=== PATIENT | female | born 1960 | race Caucasian/White ===

== ENCOUNTER 2020-10-04 14:28 | Outpatient (REF) | payer MEDICAID, SELFPAY ==
--- NOTE | 2020-10-04 | MR_ITS ---
EXAMINATION: MR BRAIN WITHOUT AND WITH CONTRAST CLINICAL INFORMATION: Colloid cyst of the third ventricle. COMPARISON: None available. TECHNIQUE: MRI of the brain was obtained using routine sequences without and following the administration of 8 mL of Gadavist intravenous contrast. FINDINGS: Extensive cystic encephalomalacia of the left MCA territory. Chronic hemosiderin staining in the region of the left dee radiata. Wallerian degeneration of the left cerebral peduncle. There is also encephalomalacia of the parasagittal left occipital lobe. No focal restricted diffusion is demonstrated to suggest acute or subacute cerebral ischemia. No evidence of acute hemorrhagic products on heme-sensitive imaging. Mild periventricular and deep white matter T2 FLAIR hyperintensities within the right cerebral hemisphere consistent with mild underlying microangiopathy. Ex vacuo dilatation of the left lateral ventricle. No evidence of obstructive hydrocephalus. No abnormal mass effect. No midline shift. No abnormal enhancement in the region of the foramen of Monro. No evidence of significant space-occupying lesion in this location. The sella turcica is partially empty. Normal positioning of the cerebellar tonsils. The flow void of the left internal carotid artery is absent. Normal arterial and venous vascular flow voids the remaining major intracranial vessels are present. No abnormal contrast enhancement. Normal, homogeneous marrow signal. Mild mucosal thickening of the paranasal sinuses. Mild rightward nasal septal deviation. No signal abnormalities within the mastoids. MR/MR head/brain wo/w con IMPRESSION: 1. Extensive encephalomalacia throughout the left MCA territory. There is also encephalomalacia involving a portion of the left PASTRY ARTIST territory. 2. No evidence of acute intracranial abnormalities. No abnormal intracranial enhancement. 3. No evidence of significant space-occupying lesion in the region of the foramen of Monro. No evidence of obstructive hydrocephalus.
== END 2020-10-04 14:29 | disposition home or self-care (01) ==
LOC: HO.MRI 14:28
PROVIDERS: PCP Family Medicine Geriatric Medicine; Visit Provider Psychiatry & Neurology Neurology
DX: Q04.6 Congenital cerebral cysts (principal)
CPT/HCPCS: 70553; A9585

== ENCOUNTER 2025-07-12 11:37 | Outpatient (AMB) | payer MEDICAID, SELFPAY ==
--- NOTE | 2025-07-12 11:38 | A.OFFVIS_ITS ---
Vital Signs 07/12/25 11:47 Height 5 ft 2 in Weight 170 lb BMI 31.1 BP 124/86 Blood Pressure Location Lt brachial Position Sitting Respiration 16 Pulse 61 Pulse Source Pulse Oximeter Pulse Oximetry (%) 96 Oxygen Delivery Method Room Air Intake Visit Reasons: Follow Up Practice Managers Required: No Funeral Service Apprentice: Funeral Service Apprentice Present Accompanied by: Bulk Sausage Casing Tier Off Allergies latex Allergy (Unknown, Verified 07/10/25 09:49) Unknown sumatriptan (From Imitrex) Allergy (Unknown, Verified 07/10/25 09:49) Unknown HPI Comments Details: Fany is a 64-year-old female patient with a past medical history of CVA and headache who is here today for a follow-up visit. She was last seen in March of [address] Varner. Notes from this date reflect that she was taking amitriptyline and topiramate for headaches though she was having difficulty sleeping her amitriptyline was reduced and topiramate was discontinued. She had a left ICA occlusion on 09/29/2016 with left MCA stroke. She was out of the tPA window. Her sleep has also been difficult in the past. There was also some mention of vestibular physical therapy for BPPV. She was advised to continue current medications for her headache which included at the time, amitriptyline 100 mg at bedtime and gabapentin 100 mg twice daily. She tells me in follow up today that she does continue to have dizziness from time to time however this is typically only in the morning when getting out bed or when going to laying down into bed. Aside from this, she is wheelchair-bound and does not move her position frequently throughout the day. She really only notices any dizziness/vertigo symptoms when she is moving her position. She does still have frequent headaches from time to time and she does allude to having 1 very severe headache somewhat recently but aside from this they are relatively manageable and fluctuating throughout the week. She is very vague on ability to describe how frequently they are occurring are the certain qualities in the headache themselves. She also tells me that since her amitriptyline has been at 150 mg nightly, she is actually having a more difficult time sleeping and the halfway staff accompanying her today also noted that when she has been on 50 mg in the past it had seemingly worked better for her. She does have a history of JADE and snores. She has not been able to tolerate CPAP in the past. Prior workup: MRI brain showing 4 mm colloid cyst of the 3rd ventricle without hydrocephalus. [facility] Medical History (Updated 07/12/25 @ 12:16 by Whitney Bazzi CNP) HLD (hyperlipidemia) Fibromyalgia Depression Stroke Review of Systems Const All systems reviewed & are unremarkable except as noted in HPI and below Neuro Reports Abnormal speech present Physical Exam Vital Signs: Last Vital Signs Pulse 61 07/12/25 11:47 Resp 16 07/12/25 11:47 BP 124/86 07/12/25 11:47 Pulse Ox 96 07/12/25 11:47 Oxygen Delivery Method Room Air 07/12/25 11:47 BMI result Body Mass Index 31.1 Const General: cooperative, healthy appearing, comfortable and no acute distress Nutritional Appearance: well nourished Orientation/consciousness: patient oriented x3 Limitations: no limitations Neuro General: patient oriented x3 Cranial nerves: Yes Other cranial nerve findings present (Right-sided facial droop) Cognition (Neuro): normal cognition Speech: Abnormal speech present garbled and slurred Gait exam (Neuro): Other gait observations present (Wheelchair bound) Motor exam (neuro): no tremor noted and Abnormal motor strength present (Chronic right-sided weakness) Sensory Exam: double simultaneous stimulation for sensation normal Romberg Test: Negative Pupils: Normal pupillary reactivity/response: bilateral Psych Appearance: grossly normal Mental Status: mental status grossly normal Speech and movement: Normal speech and movement present and Clear speech present Affect: normal affect Attitude: cooperative Thought process: Normal thought process present Thought content: Normal thought content present Insight: Good insight present (Psych) Judgement: Good judgement present (Psych) Assessment & Plan Assessment & Plan (1) Stroke: Code(s): I63.9 - Cerebral infarction, unspecified Category: Medical (2) Chronic headache: Code(s): R51.9 - Headache, unspecified; G89.29 - Other chronic pain Category: Medical (3) BPPV (benign paroxysmal positional vertigo): Code(s): H81.10 - Benign paroxysmal vertigo, unspecified ear Category: Medical (4) Insomnia: Code(s): G47.00 - Insomnia, unspecified Category: Medical (5) JADE (obstructive sleep apnea): Code(s): G47.33 - Obstructive sleep apnea (adult) (pediatric) Category: Medical Plan Fany is a 64-year-old female patient with a past medical history of CVA and headache who is here today for a follow-up visit. We are today and dressing primarily her headaches and insomnia which have seemingly gotten worse with higher doses of amitriptyline currently dose at 150 mg nightly. Seemingly, her insomnia was better controlled at the 50 mg dose and her headaches nor perhaps also slightly better on the lower dose as well. I am concerned for over- sedation which can also cause worsening of JADE which may also be contributing to her increase in headaches or even perhaps more frequent awakenings. I would like to titrate her slowly back down to a goal dose of 50 mg nightly starting with 100 mg for 2 weeks and then decreasing completely to 50 mg after that. We will see how she does at the 50 mg dose and we can consider performing a repeat sleep study when she comes back for follow up. -Reduce amitriptyline goal to 50mg nihgtly as prior -Consider sleep study Medications: New amitriptyline Take 100 mg (2 tablets) by mouth at bedtime for 2 weeks and then decrease to 50 mg (1 tablet) by mouth at bedtime 90 tabs 0RF Coding Level of Care Code Est Pt Level 4 (38985) Diagnoses Stroke I63.9 Chronic headache R51.9; G89.29 BPPV (benign paroxysmal positional vertigo) H81.10 Insomnia G47.00 JADE (obstructive sleep apnea) G47.33
[2025-07-12 11:47] VITALS: BP 124/86; PULSE 61; RESP 16; O2SAT 96; BMI 31.1
--- OUTSIDE RECORDS SUMMARY | 2025-07-12 14:36 | XMS_ITS | Encounter Summary ---
Author Organization [facility], Address [address] [place] [address] Phone Care Team Providers Care Director Institution Name Role Phone Whitney Sanches MD Primary Care Provider [phone] Encounter Details Date Type Department Care Team (Late Contact Info) Description 08/02/2024 Documentation Only [facility] [address] J[address]IEN [address] [place] [phone] Marilyn Avery [address] [place] [address] Social History Tobacco Use Types Packs/Day Years Used Date Smoking Tobacco: Never Assessed Comments Unknown Sex and Gender Information Value Date Recorded Sex Assigned at Not on file Legal Sex Female 2:59 PM EDT Gender Identity Not on file Sexual Orientation Not on file documented as of this encounter Plan of Treatment Upcoming Encounters Date Type Department Care Team (Late Contact Info) Description 08/08/2025 2:00 PM EST Office Visit [facility] [address] [place] [address] Adolph Shah MD [address] [place] [address] [place] [address] documented as of this encounter Visit Diagnoses Not on filedocumented in this encounter Care Teams Director Institution Relationship Specialty Start Date End Date Whitney Sanches MD [address] [place] [address] PCP - General Internal Medicine 12/17/23 documented as of this encounter
--- OUTSIDE RECORDS SUMMARY | 2025-07-12 14:36 | XMS_ITS | Encounter Summary ---
Author Organization [facility], Address [address] [place] [address] Phone Care Team Providers Care Tractor Technician Name Role Phone Whitney Sanches MD Primary Care Provider [phone] Encounter Details Date Type Department Care Team (Late st Contact Info) Description 10/18/2024 Documentation Only [facility] [address] [place] [address] [place], [place] [address] [place] [address] Social History Tobacco Use Types Packs/Day Years Used Date Smoking Tobacco: Never Assessed Comments Unknown Sex and Gender Information Value Date Recorded Sex Assigned at Not on file Legal Sex Female 2:59 PM EDT Gender Identity Not on file Sexual Orientation Not on file documented as of this encounter Plan of Treatment Upcoming Encounters Date Type Department Care Team (Late st Contact Info) Description 08/08/2025 2:00 PM EST Office Visit [facility] [address] [place] [address] Adolph Shah MD [address] [place] [address] [place] [address] documented as of this encounter Visit Diagnoses Not on filedocumented in this encounter Care Teams Tractor Technician Relationship Specialty Start Date End Date Whitney Sanches MD [address] [place], [place] [phone] PCP - General Internal Medicine 12/17/23 documented as of this encounter
--- OUTSIDE RECORDS SUMMARY | 2025-07-12 14:36 | XMS_ITS | Clinical Summary ---
Author Organization [facility] Address [address] [place] [id number] Phone Care Team Providers Care Power Builder Developer Name Role Phone Pcp, Unknown Primary Care Provider Unavailabl e Social History Tobacco Use Types Packs/Day Years Used Date Smoking Tobacco: Never Assessed Education Answer Date Recorded Are you interested in more education? Not on preeti e 01/25/2023 Are you concerned about learning? Not on file 01/25/2023 No 01/25/2023 No 01/25/2023 Digital Access Answer Date Recorded No 02/07/2023 No 02/07/2023 No 02/07/2023 Reliable internet access at home? Not on file 02/07/2023 Device with a working camera? Not on file Comments Unknown Sex and Gender Information Value Date Recorded Sex Assigned at Not on file Legal Sex Female 6:45 PM EST Gender Identity Not on file Sexual Orientation Not on file Plan of Treatment Health Maintenance Due Date Last Done Comments Adult Td,Tdap Booster 1960 LIPID PANEL 1960 DEPRESSION SCREENING 1972 SMOKING Hx and SMOKELESS TOBACCO SCREENING 1973 HEPATITIS C SCREENING 1978 HIV ONE-TIME SCREENING (18-6 5 YEARS) 1978 PAP SMEAR 1981 MAMMOGRAM 2000 COLOGUARD 2005 COLONOSCOPY 2005 COLORECTAL CANCER SCREENING 2005 FIT TEST 2005 FOBT 2005 SIGMOIDOSCOPY 2005 VIRTUAL COLONOSCOPY 2005 PNEUMOCOCCAL VACCINES (50+ years) (1 of 1 - PCV) 2010 ZOSTER VACCINES (1 of 2) 2010 INFLUENZA VACCINE (#1) 2025 COVID-19 VACCINE (3 - 2024-2 6 season) 2025 10/08/2020, 09/17/2020 RSV VACCINE (1 - 1-dose 75+ series) 2035 HEPATITIS A VACCINES Aged Out No long er eligible based on patient's age to complete this topic HIB VACCINES Aged Out No longer eligi ble based on patient's age to complete this topic MENINGOCOCCAL VACCINES (ACWY) Aged Out No longer eligible based on patient's age to complete this topic MENINGOCOCCAL VACCINES (B) Aged Out N o longer eligible based on patient's age to complete this topic Medical Devices Not on file Insurance [facility] [facility] [facility] [facility] Care Teams Power Builder Developer Relationship Specialty Start Date End Date Pcp, Unknown PCP - General 01/20/21 Additional Source Comments The information contained in this document represents components of the legal health record. It is not the complete legal health record.[facility]
--- OUTSIDE RECORDS SUMMARY | 2025-07-12 14:36 | XMS_ITS | Data Portability ---
Author Organization [place] - [facility], Allergy Address [address] [address] Care Team Providers Care Bulk Pallet Builder Name Role Phone WOJCIECH IRENE Primary Care Provider Assessment Encounter Date Assessment Date Assessment LastModified by Organization Details LastModified Time 02/21/2025 02/21/2025 64yo female presents with CAREER CENTER ADVISOR from intermediate for routine evaluation of the ears. Cerumen impactions removed bilaterally. TMs and EACs are normal to inspection. She has a longstanding superficial soft rubbery 2cm submental mass, suspicious for lipoma. Her primary care ordered an ultrasound for this last week, and she will fax results to our office if needed. Recommend patient return in 1 year for updated audiometric testing and cerumen debridement, sooner with concerns. [email or web address] Not available 02/21/2025 12:18:08 Plan of Treatment Reminders Order Date Submit Date Provider Last Modified By Organization Details Last Modified Time Details Appointments Hearing Test 2025 09:30A M Hearing Test Not available Not available Not available Establish ed 15 2025 09:45A M MARIA DE JESUS LAGUNA PA-C Not available Not available Not available Lab None recorded. Referral None recorded. Procedures None recorded. Surgeries None recorded. Imaging None recorded. Medication Orders None recorded. Patient TargetsNo targets recorded. Patient InstructionsNo instructions recorded. Reason for Referral None Reported. Problems Name Problem SNOMED Code Status Onset Date Resolution Date Notes Provider Name and Address Organization Details Recorded Time Otalgia 56697534 Active 2013 Earache/ Otalgia; CMS Risk: low risk CMS Treatment : establish ed problem (to examiner) : unstable or worsening Note: Date Diagnosed : 06/18/2014 1:01 PM (388.70) Not Available [facility] 4 03:11:45 Right temporoma ndibular joint disorder 38396896014 241860 Active 2014 Right temporoma ndibular joint disorder, unspecifi ed; Note: Changed from M26.609 to M26.601 ( 2 11:29 AM) , Date Diagnosed : 5 3:23 PM (M26.60) Not Available [facility] 4 03:11:43 Otalgia of right ear 3736511682 Active 2014 Otalgia, right ear; Note: Date Diagnosed : 5 3:23 PM (H92.01) Not Available [facility] 4 03:11:44 Acute pharyngit is 466645150 Active 2022 Sore throat (acute) NOS; Note: Date Diagnosed : 06/01/2023 3:46 PM (J02.9) Not Available [facility] 4 03:11:46 Mass of neck 587110399 Active 2022 Localized swelling, mass and lump, neck; Note: Date Diagnosed : 06/01/2023 3:46 PM (R22.1) Not Available [facility] 4 03:11:45 Neck swelling 009623454 Active 2022 Localized swelling, mass and lump, neck; Note: Date Diagnosed : 06/01/2023 3:46 PM (R22.1) Not Available [facility] 4 03:11:45 Temporoma ndibular joint disorder 09634036 Active 2022 Other specified disorders of temporoma ndibular joint; Note: Date Diagnosed : 06/01/2023 3:46 PM (M26.69) Not Available [facility] 4 03:11:45 Dysphonia 69682957 Active 2022 Hoarsenes s; Note: Date Diagnosed : 06/01/2023 3:46 PM (R49.0) Not Available [facility] 4 03:11:44 Bilateral earache 686711893 Active 2022 Otalgia, bilateral ; Note: Date Diagnosed : 06/01/2023 3:45 PM (H92.03) Not Available [facility] 4 03:11:44 Impacted cerumen of bilateral ears 71369923849 25932 Active 2024 MARIA DE JESUS LAGUNA PA-C [address] [facility],[place] [address], [place], [address] , [facility] - [facility] [place] 5 12:13:38 Mass of skin 967013175 Active 2024 MARIA DE JESUS LAGUNA PA-C [address] [place] [address],[place] [address], [place], [address] , [facility] - [facility] [place] 5 12:17:31 Problem Notes None recorded. Procedures Surgical History Date Name Laterality Status Provider Name and Address Organization Details Recorded Time 5 Cerumen removal without microscope bilat completed MARIA DE JESUS LAGUNA PA-C [address] [facility],[place] [address], [place], [address], [facility] - [facility] 02/21/2025 12:18:34 Imaging Results None recorded. Procedure Notes None recorded. Medical Equipment None Reported. Allergies Allergen ID Allergen Name Allergen Category Reaction Reaction Severity Criticality Documentation Date Start Date Code Code System Note Provider Name and Address Organization Details Recorded Time 96964 Ultram medicatio n other Not available Not available 01/25/2024 85528 6 RxNorm React ion: other react ion, Unkno wn; Not Available [facility] 4 01:03:58 41913 lactose Not available other Not available Not available 01/25/2024 6211 RxNorm React ion: other react ion, Unkno wn; Not Available [facility] 4 01:03:58 95298 Bactrim medicatio n other Not available Not available 01/25/2024 89923 9 RxNorm React ion: other react ion, Unkno wn; Not Available [facility] 4 01:03:59 35407 latex environme nt,medica tion other Not available Not available 01/25/2024 35827 91 RxNorm React ion: unkno wn, unspe cifie d;; Not Available [facility] 4 01:04:00 48407 sumatript an succinate medicatio n other Not available Not available 01/25/2024 38851 RxNorm React ion: unkno wn, unspe cifie d;; Not Available [facility] 4 01:04:01 15229 Compazine medicatio n other Not available Not available 01/25/2024 91825 6 RxNorm React ion: other react ion, Unkno wn; Not Available [facility] 4 01:04:02 81359 Seroquel medicatio n other Not available Not available 01/25/2024 71132 RxNorm React ion: other react ion, Unkno wn; Not Available [facility] 4 01:04:04 Medications Name Sig Start Date Stop Date Status Note LastModified by Organization Details LastModified Time fluconazo le 100 mg tablet TAKE 2 tabs by mouth today, then 1 tablet By Mouth Daily x 6 more days active Not Available Not Available No t Available atorvasta tin 80 mg tablet TAKE 1 TABLET BY MOUTH DAILY IN THE pm active Not Available Not Available No t Available acetamino phen 325 mg tablet TAKE 2 tabS (650MG) By Mouth 4 times a day NEEDED FOR Moderate PAIN or fever over 101. Not within 6 HRS of schedule d PM dose. Notify PCP if no improvem ent in 72HRS active Not Available Not Available No t Available Estring 2 mg (7.5 mcg/24 hour) vaginal ring insert 1 ring Vaginall y Every 3 MONTHS] active Not Available Not Available No t Available Vitamin C 500 mg tablet active Medicati on ID: [id number] B rand Name: Vitamin C Send Method: E-Prescr ibed Sub s Allowed: subs OK Speci al Instruct ion: TAKE 1 TABLET BY MOUTH TWICE DAILY Me dication GenericN tone: Vitamin C Not Available Not Available Not Available cetirizin e 10 mg tablet TAKE 1 TABLET BY MOUTH DAILY IN THE am active Not Available Not Available No t Available amitripty line 75 mg tablet Take 1 tablet by mouth every night at bedtime with 50 mg tablet for total dose = 125 mg active Not Available Not Available No t Available senna 8.6 mg tablet TAKE 1 TABLET BY MOUTH DAILY AT BEDTIME active Not Available Not Available No t Available sucralfat e 1 gram tablet 08/20 completed Medicati on ID: 166 Dur ation Value: 30 Brand Name: sucralfa te Send Method: E-Prescr ibed Sub s Allowed: subs OK Medic ationGen ericName : sucralfa te Not Available Not Available Not Available polyvinyl alcohol 1.4 % eye drops INSTILL 1 DROP into BOTH eyes 4 TIMES DAILY active Not Available Not Available No t Available famotidin e 40 mg tablet active Medicati on ID: [id number] B rand Name: famotidi ne Send Method: E-Prescr ibed Sub s Allowed: subs OK Speci al Instruct ion: TAKE 1 TABLET BY MOUTH TWICE DAILY Me dication GenericN tone: famotidi ne Not Available Not Available Not Available clonazepa m 0.5 mg tablet Take 1 tablet by mouth every morning active Not Available Not Available No t Available Nexium 40 mg capsule,d elayed release 08/20 completed Medicati on ID: 165 Dur ation Value: 30 Brand Name: Nexium S end Method: E-Prescr ibed Sub s Allowed: subs OK Medic ationGen ericName : Nexium Not Available Not Available Not Available topiramat e 25 mg tablet 12/23 completed Medicati on ID: [id number] B rand Name: topirama te Send Method: E-Prescr ibed Sub s Allowed: subs OK Medic ationGen ericName : topirama te Not Available Not Available Not Available ciproflox acin 500 mg tablet 08/20 completed Medicati on ID: [id number] D uration Value: 3 Brand Name: ciproflo xacin HCl Send Method: E-Prescr ibed Sub s Allowed: subs OK Speci al Instruct ion: TAKE 1 TABLET TWICE A DAY [facility] nericNam e: ciproflo xacin HCl Not Available Not Available Not Available aspirin 81 mg tablet,de layed release TAKE 1 TABLET BY MOUTH DAILY IN THE AM active Not Available Not Available No t Available amitripty line 50 mg tablet Take 1 tablet by mouth at bedtime with 75 mg tablet for total dose = 125 mg active Not Available Not Available No t Available butalbita l-acetami nophen-ca ffeine 50 mg-325 mg-40 mg tablet 08/20 completed Medicati on ID: [id number] B rand Name: butalbit al-aceta minophen -caff Se nd Method: E-Prescr ibed Sub s Allowed: subs OK Speci al Instruct ion: TAKE 1 TABLET BY MOUTH every 8 hours NEEDED Negin Castro Name: valeria al-aceta minophen -caff Not Available Not Available Not Available Zofran 4 mg tablet 12/23 completed Medicati on ID: [id number] B rand Name: Zofran S end Method: E-Prescr ibed Sub s Allowed: subs OK Medic ationGen ericName : Zofran Not Available Not Available Not Available tamsulosi n 0.4 mg capsule 08/20 completed Medicati on ID: 1656 Bra nd Name: tamsulos in Send Method: E-Prescr ibed Sub s Allowed: subs OK Medic ationGen ericName : tamsulos in Not Available Not Available Not Available trazodone 100 mg tablet 12/23 completed Medicati on ID: [id number] B rand Name: trazodon e Send Method: E-Prescr ibed Sub s Allowed: subs OK Medic ationGen ericName : trazodon e Not Available Not Available Not Available Ear Wax Removal Drops 6.5 % instill 5 DROPS IN THE right EAR TWICE DAILY FOR 7 DAYS. USE FOR 7 DAYS leading UP TO appointm ent active Not Available Not Available No t Available levothyro xine 50 mcg tablet TAKE 1 TABLET BY MOUTH DAILY IN THE am active Not Available Not Available No t Available pantopraz ole 40 mg tablet,de layed release TAKE 1 TABLET BY MOUTH TWICE DAILY active Not Available Not Available No t Available nystatin 100,000 unit/gram topical cream apply thin layer topicall y 3 TIMES A DAY FOR ITCHING yeast infectio n, USE UNTIL ITCHING resolves AND THEN STOP, MAY resume IN 7 DAYS needed IF no RELIEF IN 14 DAYS, notify prescrib er] active Not Available Not Available No t Available Advair Diskus 250 mcg-50 mcg/dose powder for inhalatio n inhale 1 PUFF BY MOUTH TWICE DAILY. RINSE MOUTH AND throat OUT WITH WATER AFTER USE active Not Available Not Available No t Available docusate sodium 100 mg capsule TAKE 2 CAPSULES BY MOUTH DAILY AT BEDTIME active Not Available Not Available No t Available gabapenti n 300 mg capsule active Medicati on ID: [id number] B rand Name: gabapent in Send Method: E-Prescr ibed Sub s Allowed: subs OK Speci al Instruct ion: Take 1 capsule by mouth at bedtime Medicati onGeneri cName: gabapent in Not Available Not Available Not Available morphine ER 15 mg tablet,ex tended release 08/20 completed Medicati on ID: 1658 Dur ation Value: 15 Brand Name: morphine Send Method: E-Prescr ibed Sub s Allowed: subs OK Medic ationGen ericName : morphine Not Available Not Available Not Available gabapenti n 100 mg capsule Take 1 capsule by mouth twice a day AM & afternoo n. active Not Available Not Available No t Available polyethyl usha glycol 3350 17 gram/dose oral powder Dissolve (17gm) in 8 oz water AND take BY MOUTH 3 TIMES DAILY FOR next 2 days. Then take TWICE DAILY FOR 1 week. Then resume daily use. active Not Available Not Available No t Available estradiol 0.01% (0.1 mg/gram) vaginal cream active Medicati on ID: [id number] B rand Name: estradio l Send Method: E-Prescr ibed Sub s Allowed: subs OK Speci al Instruct ion: insert ONE GRAM VAGINALL Y 3 TIMES A WEEK AT bedtime Medicati onGeneri cName: estradio l Not Available Not Available Not Available fluticaso ne propionat e 50 mcg/actua tion nasal spray,titi pension instill 2 SPRAYS into BOTH nostrils DAILY IN THE am active Not Available Not Available No t Available amitripty line 100 mg tablet Take 1 tablet by mouth at bedtime active Not Available Not Available No t Available Ventolin HFA 90 mcg/actua tion aerosol inhaler INHALE 2 PUFFS BY MOUTH EVERY 4 HOURS NEEDED FOR WHEEZING / SHORTNES S OF BREATH active Not Available Not Available No t Available buspirone 15 mg tablet Take 1 tablet by mouth three times a day active Not Available Not Available No t Available desmopres sin 0.1 mg tablet TAKE 1 TABLET BY MOUTH DAILY IN THE am active Not Available Not Available No t Available Calcium-5 00 500 mg (as calcium carbonate 1,250 mg) tablet 08/20 completed Medicati on ID: 1655 Bra nd Name: Calcium 500 Send Method: E-Prescr ibed Sub s Allowed: subs OK Medic ationGen ericName : Calcium 500 Not Available Not Available Not Available magnesium 200 mg tablet 08/20 completed Medicati on ID: 1654 Bra nd Name: irma maynard Send Method: E-Prescr ibed Sub s Allowed: subs OK Medic ationGen ericName : irma maynard Not Available Not Available Not Available Vitamin D3 25 mcg (1,000 unit) capsule 08/20 completed Medicati on ID: 1653 Bra nd Name: Vitamin D3 Send Method: E-Prescr ibed Sub s Allowed: subs OK Medic ationGen ericName : Vitamin D3 Not Available Not Available Not Available Cymbalta 30 mg capsule,d elayed release 12/23 completed Medicati on ID: [id number] B rand Name: Cymbalta Send Method: E-Prescr ibed Sub s Allowed: subs OK Medic ationGen ericName : Cymbalta Not Available Not Available Not Available Antacid 200 mg (as calcium carbonate 500 mg) chewable tablet chew 1 tablet BY MOUTH THREE TIMES DAILY NEEDED FOR dyspepsi a active Not Available Not Available No t Available Flovent HFA 220 mcg/actua tion aerosol inhaler active Medicati on ID: [id number] B rand Name: Flovent HFA Send Method: E-Prescr ibed Sub s Allowed: subs OK Speci al Instruct ion: inhale 2 PUFFS BY MOUTH TWICE DAILY Me dication GenericN tone: Flovent HFA Not Available Not Available Not Available Rozerem 8 mg tablet 08/20 completed Medicati on ID: 1660 Dur ation Value: 30 Brand Name: Rozerem Send Method: E-Prescr ibed Sub s Allowed: subs OK Medic ationGen ericName : Rozerem Not Available Not Available Not Available Flovent 12/23 completed Medicati on ID: [id number] B rand Name: flovent Send Method: E-Prescr ibed Sub s Allowed: subs OK Medic ationGen ericName : flovent Not Available Not Available Not Available diclofena c 1 % topical gel apply 2 Gm Topicall y 2 times a day active Not Available Not Available No t Available melatonin 5 mg tablet TAKE 2 TABLETS (10MG) BY MOUTH DAILY AT BEDTIME active Not Available Not Available No t Available DOK 100 mg tablet active Medicati on ID: [id number] B rand Name: DOK Send Method: E-Prescr ibed Sub s Allowed: subs OK Speci al Instruct ion: TAKE 2 TABLETS BY MOUTH AT BEDTIME FOR CONSTIPA TION. hold FOR loose stool x2 Medic ationGen ericName : DOK Not Available Not Available Not Available Butrans 10 mcg/hour transderm al patch 08/20 completed Medicati on ID: 1664 Dur ation Value: 28 Brand Name: Butpranav Send Method: E-Prescr ibed Sub s Allowed: subs OK Medic ationGen ericName : Butrans Not Available Not Available Not Available Vitamin D3 50 mcg (2,000 unit) capsule TAKE 1 CAPSULE BY MOUTH DAILY IN THE am active Not Available Not Available No t Available Myrbetriq 50 mg tablet,ex tended release TAKE 1 TABLET BY MOUTH ONCE DAILY IN THE am active Not Available Not Available No t Available Belinda-Tuss in DM 10 mg-100 mg/5 mL oral syrup TAKE 1 TEASPOON FUL -5ml- BY MOUTH every 4 hours NEEDED FOR cough active Not Available Not Available No t Available Vitals Date Recorded Body height Body mass index (BMI) Body weight Provider Name and Address Organization Details Last Updated DateTime 02/21/2025 157.48 cm 31.1 kg/m2 26639.7 g Nancy Titus [place] - [facility] 02/21/2025 09:48:28 Social History None recorded. Functional Status None recorded. Mental Status None recorded. Family History Nothing Reported. Medical History No medical history recorded. Gynecological HistoryNo gynecological history recorded. Obstetrics History GPAL:G 0 P 0 0 0 0 Past Encounters Encounter ID Performer Location Encounter Start Date Encounter Closed Date Diagnosis/Indication Diagnosis SNOMED-CT Code Diagnosis ICD10 Code Diagnosis IMO Codes Diagnosis Note [id number] MARIA DE JESUS LAGUNA PA-C [facility] [address] [place] [address] 02/21/2025 09:24:39 02/21/2025 10:07:11 Impacted cerumen of bilateral ears 8397804752 668002 H61.23 494541 Mass of skin 851252232 R 22.9 943717 suspicious for lipoma Health Concerns Section Related Observation LastModified by Organization Detai ls LastModified Time None Recorded Concern Status LastModified by Organization Details LastModified Time None Recorded Advance Directives Directive None Recorded Payers Insurance Date Sequence Insurance Name Policy Number Policy Cramer Covered Member ID Cramer Member ID Guarantor Name 03/28/2025 1 [facility]MEDICAID HMO) [id number] Fany Vee [id number] Fany Vee 02/21/2025 1 [facility] Fany Vee [id number] Fany Vee Notes Date Note Type Note Provider Name and Address Organization Details Recorded Time 02/21/2025 text/html ROS as noted in the HPI 64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 Reports no change in hearing. Denies ear pain, drainage, tinnitus, or Qtip use. Her primary care ordered an ultrasound for her longstanding submental mass. She will fax results to our office if needed. RADHA GUZMAN MD [address] [place] [address], [address], [facility] - [facility] 02/21/2025 12:36:14 OBGyn Episode No OBEpisode recorded.
--- OUTSIDE RECORDS SUMMARY | 2025-07-12 14:36 | XMS_ITS | Encounter Summary ---
Author Organization [facility], Address [address] [place] [address] Phone Care Team Providers Care Gum Machine Filler Name Role Phone Whitney Sanches MD Primary Care Provider [phone] Encounter Details Date Type Department Care Team (Late st Contact Info) Description 01/29/2025 Documentation Only [facility] [address] [place] [address] Marilyn Avery [address] [place] [phone] Social History Tobacco Use Types Packs/Day [...] Visit [facility] [address] [place] [address] Adolph Shah MD [address] [place] [address] [place] [address] documented as of this encounter Visit Diagnoses Not on filedocumented in this encounter Care Teams Gum Machine Filler Relationship Specialty Start Date End Date Whitney Sanches MD [address] [place] [address] PCP - General Internal Medicine 12/17/23 documented as of this encounter
--- OUTSIDE RECORDS SUMMARY | 2025-07-12 14:36 | XMS_ITS | Patient Health Record ---
Author Organization [facility] Address [address] [place] [address] Care Team Providers Care Attendant Coin Operated Laundry Name Role Phone Lynn Meneses MD Primary Care Provider Unavailab Gallito Bush Unavailable [phone] [facility] Unavailable Unavailabl e Reason For Referral No Information Medications Medication SIG (Take, Route, Frequency, Duration) Notes Start Date End Date Status NexIUM AC BID *Please review a nd pick correct strength-formulation from Medispan options. If intended option is not shown, discontinue and re-order from Quick Search* Active Amitriptyline HCl *Please review and pick correct strength-formulation from Medispan options. If intended option is not shown, discontinue and re-order from Quick Search* Active Clindamycin HCl *Please review a nd pick correct strength-formulation from SaaSMAXspan options. If intended option is not shown, discontinue and re-order from Quick Search* Active Uroxatral *Please review a nd pick correct strength-formulation from Medispan options. If intended option is not shown, discontinue and re-order from Quick Search* Active Effexor XR *Please review a nd pick correct strength-formulation from Medispan options. If intended option is not shown, discontinue and re-order from Quick Search* Active Mirtazapine *Please review a nd pick correct strength-formulation from Medispan options. If intended option is not shown, discontinue and re-order from Quick Search* Active KlonoPIN *Please review a nd pick correct strength-formulation from Apisphere options. If intended option is not shown, discontinue and re-order from Quick Search* Active Methadone HCl *Please review a nd pick correct strength-formulation from Apisphere options. If intended option is not shown, discontinue and re-order from Quick Search* Active Plan Of Treatment No Information Insurance Providers Payer Name Payer Address Payer Phone Subscriber Number Group Number Insured Name Patient Relationship to Insured Coverage Start Date Coverage End Date [facility] [address] [place] [phone] [id number] Fany Vee Self - patient is the insured Medical (General) History Medical History History ICD Code CHRONIC HEADACHES FIBROMYALGIA Esophageal reflux depression osteoarthritis high cholesterol Surgical History Surgery Date(Month/Year) M&T - Duravents
--- OUTSIDE RECORDS SUMMARY | 2025-07-12 14:36 | XMS_ITS | Clinical Summary ---
Author Organization [facility], Address [address] [place] [address] [place] [address] Phone Care Team Providers Care Health And Safety Trainer Name Role Phone Whitney Sanches MD Primary Care Provider [phone] Allergies Active Allergy Reactions Criticality Noted Date Comments Lactose 01/26/2024 Other Reaction(s): gi upset Latex 01/26/2024 Other Reaction(s): rash Prochlorperazine 01/26/2024 Other Reaction(s): increase pain sensitivity Quetiapine 01/26/2024 Other Reaction(s): ? reaction Sulfamethoxazole-Trimetho prim 01/26/2024 Other Reaction(s): gi upset, headaches Sumatriptan Other (see comments) 01/26/2024 Medications acetaminophen (TYLENOL) 325 MG tablet TAKE 2 tabs (650mg) By Mouth 4 times a day as needed for Moderate pain or fever over 101. Not within 6 hours of scheduled PM dose. Notify PCP if no improvement in 72 hours Active amitriptyline (ELAVIL) 100 MG tablet Take 100 mg by mouth at bed time Active Aspirin Low Dose 81 MG EC tablet TAKE 1 TABLET BY MOUTH DAILY IN THE am 4 Active atorvastatin (LIPITOR) 80 MG tablet TAKE 1 TABLET BY MOUTH DAILY IN THE pm Active busPIRone (BUSPAR) 10 MG tablet Take 10 mg by mouth Active cetirizine (ZyrTEC) 10 MG tablet TAKE 1 TABLET BY MOUTH DAILY IN THE am Active SM Vitamin D3 50 MCG capsule TAKE 1 CAPSULE BY MOUTH DAILY IN THE am 4 Active clonazePAM (KlonoPIN) 0.5 MG tablet Take 0.5 mg by mouth 4 Active docusate sodium (COLACE) 100 MG capsule TAKE 2 CAPSULES BY MOUTH AT NIGHT at bedtime Active desmopressin (DDAVP) 0.1 MG tablet TAKE 1 TABLET BY MOUTH DAILY IN THE am Active Estring 7.5 MCG/24HR ring insert 1 ring VAGINALLY ONCE every 3 MONTHS 4 Active famotidine (PEPCID) 40 MG tablet TAKE 1 tablet By Mouth 2 times a day stop omeprazole 4 Active gabapentin (NEURONTIN) 100 MG capsule Take 1 capsule by mouth twice a day AM & afternoon. Active levothyroxine (SYNTHROID, LEVOTHROID) 50 MCG tablet TAKE 1 TABLET BY MOUTH DAILY IN THE am Active Melatonin Maximum Strength 5 MG tablet TAKE 1 tablet By Mouth Daily at bedtime FOR insomnia. 4 Active Myrbetriq 50 MG tablet sustained-relea se 24 hour TAKE 1 TABLET BY MOUTH DAILY IN THE pm Active polyethylene glycol (GLYCOLAX) 17 GM/SCOOP powder POUR 17 GRAMS INTO 8OZ OF WATER OR BEVERAGE AND TAKE BY MOUTH DAILY in AM FOR constipation. hold FOR loose stool 4 Active senna (SENOKOT) 8.6 MG tablet Take 1 tablet by mouth every night 4 Active pantoprazole (PROTONIX) 40 MG EC tablet Take 40 mg by mouth in the morning and 40 mg in the evening. 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 Hypernatremia 01/26/2024 Vitamin D deficiency 01/26/2024 Immunizations Immunization Administration Dates Next Due Hepatitis A 04/22/2011,06/27/2010 Influenza (IM) Preservative Free 10/21/2021 Influenza, Quadrivalent, Pre servative Free 08/09/2016 Influenza, Unspecified 08/12/2023,2022,10/21/2021,07/30,06/07/2013,05/29/2011,06/27/2010 Pfizer SARS-COV-2 07/25/2021,10/08/2020,09/17/19 21 Pneumococcal Polysaccharide 09/14/2016 SARS-CoV-2, Unspecified 08/12/2023,07/30/2022 Td, Unspecified 02/02/2012 Tdap 03/01/2016,09/13/2011,10/28/2010 Social History Tobacco Use Types Packs/Day Years Used Date Smoking Tobacco: Never Assessed Comments Unknown Sex and Gender Information Value Date Recorded Sex Assigned at Not on file Legal Sex Female 2:59 PM EDT Gender Identity Not on file Sexual Orientation Not on file Plan of Treatment Upcoming Encounters Date Type Department Care Team (Late st Contact Info) Description 08/08/2025 2:00 PM EST Office Visit [facility], [address] [place] [address] Adolph Shah MD [address] [place] [address] Health Maintenance Due Date Last Done Comments Breast Cancer Screening 1960 Colorectal Cancer Screening: Annual FOBT 2009 Colorectal Cancer Screening: Colonoscopy 2009 Colorectal Cancer Screening: Sigmoidoscopy 2009 Pneumococcal Vaccine: 50+ Years (2 of 2 - PCV) 09/14/2017 09/14/2016 Influenza Vaccine (#1) 2025 3, 09/17/2022, 10/21/2021, Additional history exists Pneumococcal Vaccine: Peds (0 to 5 Years) and At-Risk Patients (6 to 49 Years) Discontinued 09/14/2016 Hepatitis B Vaccine Aged Out No longe r eligible based on patient's age to complete this topic Insurance [facility] Care Teams Health And Safety Trainer Relationship Specialty Start Date End Date Whitney Sanches MD [address] [place] [address] PCP - General Internal Medicine 12/17/23
--- OUTSIDE RECORDS SUMMARY | 2025-07-12 14:36 | XMS_ITS | Encounter Summary ---
Author Organization [facility] Address [address] [place] [address] Phone Care Team Providers Care Fashion Consultant Sales Name Role Phone Whitney Sanches MD Primary Care Provider [phone] Encounter Details Date Type Department Care Team (Late Contact Info) Description 01/06/2024 Documentation Only [facility] [address] [place] [address] [facility] [place] [address] [place] [address] Social History Tobacco Use Types [...] Visit [facility] [address] [place] [address] Adolph Shah MD [address] [place] [address] [place] [address] documented as of this encounter Visit Diagnoses Not on filedocumented in this encounter Care Teams Fashion Consultant Sales Relationship Specialty Start Date End Date Whitney Sanches MD [address] [place], [place] [id number] PCP - General Internal Medicine 12/17/23 documented as of this encounter
== END 2025-07-12 12:11 | disposition home or self-care (01) ==
LOC: HO.HSM 11:38
PROVIDERS: PCP Internal Medicine; Visit Provider Nurse Practitioner
DX: I63.9 Cerebral infarction, unspecified (principal); R51.9 Headache, unspecified; G89.29 Other chronic pain; H81.10 Benign paroxysmal vertigo, unspecified ear; G47.00 Insomnia, unspecified; G47.33 Obstructive sleep apnea (adult) (pediatric)
CPT/HCPCS: 99214

== ENCOUNTER → 2025-07-12 11:37 | Outpatient (BNVA) | payer OTHER, SELFPAY | PROVIDERS: PCP Internal Medicine; Visit Provider Nurse Practitioner | DX: G47.00 Insomnia, unspecified (principal); H81.10 Benign paroxysmal vertigo, unspecified ear; R51.9 Headache, unspecified; G47.33 Obstructive sleep apnea (adult) (pediatric); G89.29 Other chronic pain; Z99.3 Dependence on wheelchair; Z86.73 Personal history of transient ischemic attack (TIA), and cerebral infarction without residual deficits; Z79.899 Other long term (current) drug therapy | CPT/HCPCS: 99212 ==